=== PATIENT | female | born 1990 | race Caucasian/White ===

== ENCOUNTER 2018-02-11 04:50 | Inpatient (IN) | payer OTHER ==
[2018-02-11] MEDS ORDERED: OXYTOCIN 30 UNITS/LR 500 ML IV ×2 (06:30)
[2018-02-11] MEDS ORDERED: BUTORPHANOL 2 MG INJ IV (06:30)
[2018-02-11] MEDS ORDERED: CARBOPROST 250 MCG INJ IM (06:30)
[2018-02-11] MEDS ORDERED: METHYLERGONOVINE 0.2 MG INJ IM (06:30)
[2018-02-11] MEDS ORDERED: MISOPROSTOL 200 MCG TAB PR (06:30)
[2018-02-11] MEDS ORDERED: LIDOCAINE 1% (MPF) 30 ML INJ INJ (06:30)
[2018-02-11] MEDS ORDERED: IBUPROFEN 600 MG TAB PO (06:30)
[2018-02-11 06:42] LABS: ADD MAN DIFF? NO
[2018-02-11 06:45] LABS: WHITE BLOOD COUNT 8.9 10^3/ul (4.8-10.8)
[2018-02-11 06:45] LABS: BASOPHILS % 0.4 % (0.0-2.0); EOSINOPHILS # 0.1 10^3/ul (0.0-0.5); EOSINOPHILS % 0.9 % (0.0-7.0); HEMATOCRIT 43.7 % (37.0-47.0); HEMOGLOBIN 14.7 g/dl (12.0-16.0); LYMPHOCYTES # 1.4 10^3/ul (0.8-2.9); LYMPHOCYTES % 15.8 % (15.0-51.0); MEAN CORPUSCULAR HEMOGLOBIN 31.3 pg (29.0-33.0); MEAN CORPUSCULAR HGB CONC 33.6 g/dl (32.0-37.0); MONOCYTE # 0.8 10^3/ul (0.3-0.9); MONOCYTES % 8.4 % (0.0-11.0); NEUTROPHIL # 6.6 10^3/ul (1.6-7.5); NEUTROPHILS % 74.1 % (39.0-77.0); PLATELET COUNT 232 10^3/UL (140-415); RED CELL DISTRIBUTION WIDTH 13.1 % (11.5-14.5)
[2018-02-11] MEDS: LACTATED RINGER'S 1,000 ML IV* ×3 (06:47→23:08)
[2018-02-11 06:58] LABS: INR 0.97
[2018-02-11 06:59] LABS: PARTIAL THROMBOPLASTIN TIME 26.7 Sec (23.0-35.0)
[2018-02-11 07:31] LABS: ADD UMIC YES; UR AMORPHOUS CRYSTAL FEW /HPF (NONE SEEN); UR ASCORBIC ACID NEGATIVE (NEGATIVE); UR BACTERIA FEW /HPF (NONE SEEN); UR BILIRUBIN (Dip) NEGATIVE (NEGATIVE); UR BLOOD (Dip) 2+ mg/dL (NEGATIVE); UR CLARITY SLIGHTLY CLOUDY (CLEAR); UR COLOR YELLOW (YELLOW); UR GLUCOSE (Dip) NEGATIVE (NEGATIVE); UR KETONES (Dip) TRACE mg/dL (NEGATIVE); UR LEUKOCYTE ESTERASE (Dip) NEGATIVE Leu/ul (NEGATIVE); UR NITRITE (Dip) NEGATIVE (NEGATIVE); UR RBC 1 /HPF (0-5); UR SPECIFIC GRAVITY (Dip) 1.018 (1.003-1.030); UR SQUAMOUS EPITHELIAL CELL FEW /HPF (FEW); UR TOTAL PROTEIN (Dip) NEGATIVE (NEGATIVE); UR UROBILINOGEN (Dip) NEGATIVE (NEGATIVE); UR WBC 3 /HPF (0-5)
[2018-02-11 07:35] LABS: HEPATITIS B SURFACE ANTIGEN NEGATIVE (NEGATIVE)
[2018-02-11 07:39] LABS: RUPTURE FETAL MEMBRANES POSITIVE (NEGATIVE)
[2018-02-11 08:35] LABS: GLUCOSE 101 mg/dl (70-220)
[2018-02-11] MEDS: OXYTOCIN 30 UNITS/LR 500 ML IV (10:39)
[2018-02-11] MEDS: AMPICILLIN 2 GM/NS (PMX) 100 ML IVPB (13:17)
[2018-02-11 16:31] LABS: RAPID PLASMA REAGIN NONREACTIVE (NR)
[2018-02-11] MEDS: AMPICILLIN 1 GM/NS (PMX) 50 ML IVPB ×3 (17:00→20:35)
[2018-02-11] MEDS: LACTATED RINGER'S 1,000 ML IV (20:51)
[2018-02-11] MEDS ORDERED: ONDANSETRON 4 MG INJ IV (23:30)
[2018-02-11] MEDS ORDERED: DIPHENHYDRAMINE 50 MG INJ IV (23:30)
[2018-02-11] MEDS ORDERED: NALOXONE (0.4 MG/ML) INJ IV (23:30)
[2018-02-11] MEDS ORDERED: KETOROLAC 30 MG INJ IV (23:30)
[2018-02-11] MEDS ORDERED: ZOLPIDEM 5 MG TAB PO (23:30)
[2018-02-11] MEDS ORDERED: HYDROmorphONE 0.5 MG/0.5 ML SYG IV ×2 (23:30)
[2018-02-12] MEDS: AMPICILLIN 1 GM/NS (PMX) 50 ML IVPB ×4 (00:47→13:29)
[2018-02-12] MEDS: FENTAnyl 2MCG/ML-ROPIV 0.2% 100 ML BAG EPI ×2 (02:35→08:58)
[2018-02-12] MEDS: LACTATED RINGER'S 1,000 ML IV* ×3 (06:22→21:41)
[2018-02-12] MEDS ORDERED: LIDOCAINE 0.5% (SDV) 50 ML INJ (08:15)
[2018-02-12] MEDS: MINERAL OIL LIGHT 10 ML VIAL TOP (17:07)
[2018-02-12] MEDS ORDERED: LIDOCAINE 2% (SDV) 5 ML INJ ×2 (17:17→17:18)
[2018-02-12] MEDS: OXYTOCIN 30 UNITS/LR 500 ML IV (18:41)
[2018-02-12] MEDS ORDERED: CARBOPROST 250 MCG INJ IM (20:30)
[2018-02-12] MEDS ORDERED: METHYLERGONOVINE 0.2 MG INJ IM (20:30)
[2018-02-12] MEDS ORDERED: ZOLPIDEM 5 MG TAB PO (20:30)
[2018-02-12] MEDS ORDERED: MISOPROSTOL 200 MCG TAB PR (20:30)
[2018-02-12] MEDS ORDERED: DIBUCAINE 1% 30 GM OINT PR (20:30)
[2018-02-12] MEDS ORDERED: HYDROCODONE/APAP (5/325) TAB PO (20:30)
[2018-02-12] MEDS ORDERED: OXYTOCIN 30 UNITS/LR 500 ML IV (20:30)
[2018-02-12] MEDS: HYDROCODONE/APAP (5/325) TAB PO (20:35)
[2018-02-12] MEDS: SENNA/DOCUSATE NA (8.6MG/50MG) TAB PO (21:41)
[2018-02-12] MEDS: WITCH HAZEL/GLYCERIN PAD PR (21:41)
[2018-02-12] MEDS: BENZOCAINE 20% 56 ML SPRAY TOP (21:42)
[2018-02-12] MEDS: LANOLIN 7 GM TUBE TOP (21:42)
[2018-02-12] MEDS: MAGNESIUM HYDROXIDE 30ML CUP PO (21:43)
[2018-02-12] MEDS: CEFAZOLIN 2 GM/50 ML (PMX) 50 ML IVPB (22:26)
[2018-02-12] MEDS: CEPHALEXIN 500 MG CAP PO (23:46)
[2018-02-12] MEDS: IBUPROFEN 600 MG TAB PO (23:46)
[2018-02-13] MEDS: LACTATED RINGER'S 1,000 ML IV* ×3 (04:18→16:23)
[2018-02-13] MEDS: CEPHALEXIN 500 MG CAP PO ×4 (05:52→23:58)
[2018-02-13] MEDS: IBUPROFEN 600 MG TAB PO ×4 (05:52→23:58)
[2018-02-13 07:18] LABS: ADD MAN DIFF? NO
[2018-02-13 07:22] LABS: BASOPHIL # 0.1 10^3/ul (0.0-0.1); BASOPHILS % 0.4 % (0.0-2.0); EOSINOPHILS # 0.1 10^3/ul (0.0-0.5); EOSINOPHILS % 0.5 % (0.0-7.0); HEMATOCRIT 34.8 % (37.0-47.0); HEMOGLOBIN 11.6 g/dl (12.0-16.0); LYMPHOCYTES # 1.4 10^3/ul (0.8-2.9); LYMPHOCYTES % 10.2 % (15.0-51.0); MEAN CORPUSCULAR HEMOGLOBIN 31.3 pg (29.0-33.0); MEAN CORPUSCULAR HGB CONC 33.3 g/dl (32.0-37.0); MEAN CORPUSCULAR VOLUME 93.8 fl (82.0-101.0); MEAN PLATELET VOLUME 10.6 fl (7.4-10.4); MONOCYTE # 1.2 10^3/ul (0.3-0.9); MONOCYTES % 8.8 % (0.0-11.0); NEUTROPHIL # 11.2 10^3/ul (1.6-7.5); NEUTROPHILS % 79.5 % (39.0-77.0); PLATELET COUNT 178 10^3/UL (140-415); RED BLOOD COUNT 3.71 10^6/ul (4.20-5.40); RED CELL DISTRIBUTION WIDTH 13.4 % (11.5-14.5)
[2018-02-13] MEDS: SENNA/DOCUSATE NA (8.6MG/50MG) TAB PO ×2 (10:50→21:00)
[2018-02-13] MEDS: MAGNESIUM HYDROXIDE 30ML CUP PO ×2 (10:50→21:00)
[2018-02-14] MEDS: LACTATED RINGER'S 1,000 ML IV* ×2 (04:18→12:18)
[2018-02-14] MEDS: CEPHALEXIN 500 MG CAP PO ×2 (05:47→11:59)
[2018-02-14] MEDS: IBUPROFEN 600 MG TAB PO ×2 (05:47→11:59)
[2018-02-14 08:23] LABS: ADD MAN DIFF? NO
[2018-02-14 08:26] LABS: BASOPHILS % 0.4 % (0.0-2.0); EOSINOPHILS # 0.2 10^3/ul (0.0-0.5); EOSINOPHILS % 2.5 % (0.0-7.0); HEMATOCRIT 31.9 % (37.0-47.0); HEMOGLOBIN 10.7 g/dl (12.0-16.0); LYMPHOCYTES # 1.5 10^3/ul (0.8-2.9); LYMPHOCYTES % 16.5 % (15.0-51.0); MEAN CORPUSCULAR HEMOGLOBIN 31.7 pg (29.0-33.0); MEAN CORPUSCULAR HGB CONC 33.5 g/dl (32.0-37.0); MEAN CORPUSCULAR VOLUME 94.4 fl (82.0-101.0); MEAN PLATELET VOLUME 10.8 fl (7.4-10.4); MONOCYTE # 0.7 10^3/ul (0.3-0.9); MONOCYTES % 7.7 % (0.0-11.0); NEUTROPHIL # 6.5 10^3/ul (1.6-7.5); NEUTROPHILS % 72.3 % (39.0-77.0); PLATELET COUNT 156 10^3/UL (140-415); RED BLOOD COUNT 3.38 10^6/ul (4.20-5.40); RED CELL DISTRIBUTION WIDTH 13.5 % (11.5-14.5)
[2018-02-14] MEDS: MAGNESIUM HYDROXIDE 30ML CUP PO (09:00)
[2018-02-14] MEDS: SENNA/DOCUSATE NA (8.6MG/50MG) TAB PO (09:00)
[2018-02-14] MEDS: MEASLES,MUMPS,RUBELLA VACCINE INJ SC* (09:53)
[2018-02-14] MEDS: VARICELLA VACCINE LIVE/PF 1,350 UNIT/0.5 ML ML SC* (09:53)
[2018-02-14] MEDS: DIPHTH/TET/ACEL PERTUSS (ADULT) 0.5 ML VIAL IM* (09:53)
== END 2018-02-14 15:40 | disposition home or self-care (01) | DRG 807 ==
LOC: OBT 04:50 → PP1 02-12 20:47 → L-D 04:50 → OBT 05:45 → L-D 05:45
PROC: 10E0XZZ Delivery of Products of Conception, External Approach (ICD-10-PCS; principal; 2018-02-12)
DX: O70.1 Second degree perineal laceration during delivery (principal); Z37.0 Single live birth; Z3A.40 40 weeks gestation of pregnancy
CPT/HCPCS: 62319; 76815; 81001; 82947; 82962; 84112; 85025; 85610; 85730; 86592; 86850; 86900; 86901; 87086; 87340; 90715; 90716; 99464